=== PATIENT | female | born 2000 | race American Indian/Alaskan Native ===

== ENCOUNTER 2022-06-27 17:20 | Inpatient (IN) | payer OTHER ==
[~2022-06-27] VITALS: Ht 154.9 cm; Wt 84.1 kg
[2022-06-27] VITALS (17 sets, daily range): BP systolic 105–142; BP diastolic 58–86; PULSE 98–125; TEMP 98.6
[2022-06-27] MEDS ORDERED: ZANTAC-360 (FAM10 MG PO (17:38)
[2022-06-27] MEDS ORDERED: PRENATAL (17:39)
[2022-06-27] MEDS ORDERED: VITAMIN B-625 MG (17:39)
[2022-06-27] MEDS ORDERED: VITAMIN D362.5 MC1 PO (17:40)
[2022-06-27] MEDS ORDERED: VTAMINC250TA (17:40)
[2022-06-27] MEDS ORDERED: UNISOM25 MG PO (17:40)
--- NOTE | 2022-06-27 18:20 | NUR ---
1820 REPEAT RECEIVED FROM VALERIE BENOIT RN. 1830 REPEAT VAG EXAM. 7100/0. MILD CONTRACTIONS. PT STATES JUST FEELS CRAMPY. 1840 DR SHARMA NOTIFIED AND ORDERS TO ADMIT RECEIVED.
--- NOTE | 2022-06-27 19:10 | NUR ---
1909 IV FLUIDS STARTED AND IV ABX STARTED. LAB DRAWN AND PERMITS SIGNED.
[2022-06-27 19:55] LABS: BASO # 0.1 K/mm3 (0.0-0.2); BASO % 0.4 % (0.0-2.0); EOS # 0.1 K/mm3 (0.0-0.7); EOS % 0.8 % (0.0-4.0); GRAN # 10.8 K/mm3 (1.4-6.5); GRAN % 74.1 % (42.2-75.2); HEMATOCRIT 36.2 % (37.0-47.0); HEMOGLOBIN 12.5 g/dl (12.5-16.0); LYMPH # 2.3 K/mm3 (1.2-3.4); LYMPH % 16.1 % (20.0-51.0); MEAN CELL VOLUME 87 fl (80.0-100.0); MEAN CORPUSCULAR HEMOGLOBIN 30 pg (27-31); MEAN CORPUSCULAR HGB CONC 35 g/dl (33.0-37.0); MONO # 1.1 K/mm3 (0.1-0.6); MONO % 7.6 % (1.7-9.3); PLATELET COUNT 274 K/mm3 (130-400); RED BLOOD COUNT 4.15 M/mm3 (4.10-5.30); REDCELL DISTRIBUTION WIDTH-CV 12.6 % (11.5-14.5)
--- NOTE | 2022-06-27 20:00 | NUR ---
1999 REQUEST IV PAIN MED. SVE /0. DR SHARMA NOTIFIED. ORDER RECEIVED 2009 STADOL 1MG IV GIVEN
--- NOTE | 2022-06-27 21:10 | NUR ---
2109 SITTING UP ON BB. REQUESTING 2ND DOSE OF STADOL. 2119 RETURNED TO BED. SVE /0 2124 STADOL 1MG IV GIVEN.
--- NOTE | 2022-06-27 21:45 | NUR ---
2144 REQUEST EPID. GLUE MIXER HERE AND NOTIFIED. 2149 SITTING ON SIDE OF BED FOR EPID PLACEMENT. HEARTRATE MATCHES MATERNAL HEARTRATE WHILE SITTING UP FOR EPID. SEE ANESTH RECORD FOR MORE INFORMATION.
--- NOTE | 2022-06-27 22:45 | NUR ---
2245 FHR AND MHR MATCHES SEVERAL TIMES. SCALP ELECTRODE APPLIED. SITTING UP IN [facility] FOR C/O RECTAL PAIN WITH CONTRACTIONS.
--- NOTE | 2022-06-27 23:28 | NUR ---
2328 PITOCIN STARTED PER PROTOCOL AT 2MU/MIN
--- NOTE | 2022-06-27 23:35 | NUR ---
2335 BUENO CATH INSERTED. TO LL WITH PEANUT BALL. FHT'S DECREASE FROM BL OF 120'S TO 90-100. TURNED TO RL WITH PEANUT BALL WITH NO CHANGE IN FHT. TO SEMIFOWLER WITH INCREASE OF HEARTRATE TO BASELINE 110-120'S
[2022-06-28] VITALS (16 sets, daily range): BP systolic 110–178; BP diastolic 52–114; PULSE 78–151; TEMP 98–98.1
--- NOTE | 2022-06-28 00:47 | NUR ---
0047 COMPLETE AND INSTRUCTED TO PUSH WITH CONTRACTIONS. BUENO DC'D 0100 DR SHARMA CALLED TO COME TO DELIVERY. READIED FOR DEL 0110 DR SHARMA IN ROOM. 0116 DEL VIABLE MALE OVER VAG LAC WITH 9//9 APGARS. REMAINS IN LR6. IV CONTS TO INFUSE
--- NOTE | 2022-06-28 04:15 | NUR ---
0415 IV TO INT. EPID CATH REMOVED. UP TO BR PER SILVANA COYLE. VOIDED 900CC. PERICARE DONE. TO 208 PER SILVANA COYLE AND GALEN WELL
--- NOTE | 2022-06-28 12:20 | NUR ---
Cloth Printing Inspector rounds: Cloth Printing Inspector provided blessing for Baby Farooq Nascimento. Provided Mother a small bible and certificate.
--- NOTE | 2022-06-28 12:49 | NUR ---
1200 REPORT GIVEN TO Jayce BRIDGES RN TO ASSUME CARE AT THIS TIME
--- NOTE | 2022-06-28 13:05 | NUR ---
Pt crying in bed in pain, screaming with fundal massage. Pt states incision is burning and stinging. Motrin, Tylenol, and Oxy given at 1100. Ice pack placed over incisional area. Dr. Alves notified, see physician notification. Orders received for Dilauded.
[2022-06-29 08:09] VITALS: BP 143/95; PULSE 88; TEMP 97.4
[2022-06-29] MEDS ORDERED: IBU600 MG PO (09:40)
== END 2022-06-29 15:02 | disposition home or self-care (01) | DRG 807 ==
LOC: LDRO 17:20 → LDR 18:48 → OB 06-28 04:15
PROVIDERS: Obstetrics & Gynecology; ADMIT Obstetrics & Gynecology
PROC: 10E0XZZ Delivery of Products of Conception, External Approach (ICD-10-PCS; principal; 2022-06-28)
PROC: 0UQMXZZ Repair Vulva, External Approach (ICD-10-PCS; 2022-06-28)
DX: O99.344 Other mental disorders complicating childbirth (principal); Z37.0 Single live birth; F41.9 Anxiety disorder, unspecified; Z3A.41 41 weeks gestation of pregnancy; F32.A Depression, unspecified; O48.0 Post-term pregnancy; O70.0 First degree perineal laceration during delivery; O69.81X0 Labor and delivery complicated by cord around neck, without compression, not applicable or unspecified
CPT/HCPCS: J0595; J2405; J2540; J2590; J2795; J7120